=== PATIENT | female | born 1930 | race Two or more races ===

== ENCOUNTER 2016-10-28 11:00 | Emergency (ER) | payer OTHER, MEDICAID ==
[2016-10-28 11:23] VITALS: TEMP 99.1
--- NOTE | 2016-10-28 11:52 | CPEKG ---
Heart Rate: 64 RR Interval: 938 P-R Interval: 172 QRSD Interval: 78 QT Interval: 396 QTC Interval: 409 P [place]: 28 QRS [place]: -28 T Wave [place]: 1 EKG Severity - BORDERLINE ECG - EKG Impression: SINUS RHYTHM EKG Impression: BORDERLINE LEFT AXIS DEVIATION EKG Impression: CONSIDER ANTERIOR INFARCT Electronically Signed By: Oswaldo Monsalve 29-Oct-2016 06:36:01
[2016-10-28 11:57] LABS: % IMMATURE GRANULYOCYTES 0.2 % (0.0-1.1); ABSOLUTE IMMATURE GRANULOCYTES 0.01 10^3/uL (0.00-0.10); ADD DIFF? NO; ADD MORPH? NO; ADD SCAN? NO; ATYPICAL LYMPHOCYTE FLAG 20 (0-99); FRAGMENT RBC FLAG 0 (0-99); HEMATOCRIT 38.6 % (38.0-47.0); HEMOGLOBIN 12.5 g/dL (12.6-16.3); LEFT SHIFT FLG 0 (0-99); LIPEMIA HEMOLYSIS FLAG 80 (0-99); MEAN CELL HEMOGLOBIN CONCENTR. 32.4 g/dL (32.4-36.7); MEAN CELL VOLUME 86.5 fL (81.5-99.8); MEAN PLATELET VOLUME 9.9 fL (8.7-11.7); PLATELET CLUMPS FLAG 10 (0-99); PLATELET COUNT 204 10^3/uL (150-400); RED BLOOD CELL COUNT 4.46 10^6/uL (4.18-5.33); RED CELL DISTRIBUTION WIDTH 17.1 % (11.5-15.2)
[2016-10-28] MEDS ORDERED: IPRATROPIUM/ALBUTEROL 3 ML DEYVIAL IH ONE (12:01)
--- NOTE | 2016-10-28 12:01 | UCPHY ---
H & P Patient Type: Established Chief Complaint Nursing Narrative: Chest congestion and some chest tightness for the last 5 days or so . Decreased appetite for last week. Sent over from [facility] for elevated BP. Pt denies Chest pain or other pain . Denies recent travel. Denies new leg swelling Time Seen by Provider: 10/28/16 11:32 HPI/ROS: This patient presents with a chief complaint of a persisting cough which began 5 or 6 days ago. She has had a subjective fever and nasal congestion believes that she has a cold although she has been using her nebulizer because her asthma is bothering her. She denies shortness of breath however. She denies chest pain but her chest does feel tight. She denies sore throat or ear pain. REVIEW OF SYSTEMS: Constitutional: Subjective fever, fatigue Eyes: No complaints ENT: Nasal congestion but no sore throat and no ear pain Respiratory: Productive cough, denies shortness of breath Cardiac: Chest tightness without pain. Gastrointestinal: Nausea, abdominal cramping, chronic constipation, denies vomiting or diarrhea Genitourinary: Not addressed Musculoskeletal: Chronic lower leg swelling unchanged since the above symptoms began, no calf pain. She has use Lasix in the past for the swelling but not currently. Skin: No rash Neurological: No headache Source: Patient, RN notes reviewed, Old records Exam Limitations: No limitations - Personal History Current Tetanus Diphtheria and Acellular Pertussis (TDAP): Yes Tetanus Vaccine Date: WITHIN 10 YRS - Medical/Surgical History Hx Asthma: Yes Hx Chronic Respiratory Disease: No Hx Diabetes: Yes Hx Cardiac Disease: Yes Hx Renal Disease: No Hx Cirrhosis: No Hx Alcoholism: No Hx HIV/AIDS: No Hx Splenectomy or Spleen Trauma: No Other PMH: Hysterectomy, appendectomy, VT 2014, CHF, SBO, Glaucoma, DM Type II, HTN, A-FIB, ORTHO SURG, SPINAL FUSION, surgery for bowel obstruction,Right shoulder surgery in 2016 - Family History Significant Family History: No pertinent family hx - Social History Smoking Status: Former smoker - Physical Exam Exam: GENERAL: Well-appearing, well-nourished and in no acute distress. HEAD: Atraumatic, normocephalic. EYES: extraocular movements intact, sclera anicteric, conjunctiva are normal. ENT: TMs normal, nares patent, oropharynx clear without exudates. Moist mucous membranes. NECK: Normal range of motion, supple without lymphadenopathy or JVD. No tenderness LUNGS: Breath sounds the expiratory phase of respiration is prolonged and there are expiratory wheezes present, no rales a appreciated. HEART: Regular rate and rhythm without murmurs, rubs or gallops. ABDOMEN: Soft, nontender, normoactive bowel sounds. No guarding, no rebound. No masses appreciated. EXTREMITIES: Normal range of motion, mild lower extremity edema No clubbing or cyanosis. NEUROLOGICAL: Cranial nerves II through XII grossly intact. Normal speech, normal gait. PSYCH: Normal mood, normal affect. SKIN: Warm, dry, normal turgor, no visible rashes or lesions. Constitutional: Initial Vital Signs Temperature (C) 37.3 C 10/28/16 11:18 Heart Rate 64 10/28/16 11:18 Respiratory Rate 22 H 10/28/16 11:18 Blood Pressure 198/94 H 10/28/16 11:18 O2 Sat (%) 94 10/28/16 11:18 O2 Delivery Mode Room Air Allergies/Adverse Reactions: ciprofloxacin [From Cipro] Allergy (Mild, Verified 02/25/16 14:45) Rash ciprofloxacin HCl [From Cipro] Allergy (Mild, Verified 02/25/16 14:45) Rash levofloxacin [From Levaquin] Allergy (Verified 10/28/16 11:23) Home Medications: Medication Instructions Recorded ASPIRIN 02/25/16 Bactrim DS 02/25/16 Cetirizine 02/25/16 Combigan (RX) 02/25/16 Flonase Nasal [place] 02/25/16 LACTULOSE 02/25/16 LYRICA 02/25/16 Lactobacillus Rhamnosus GG 02/25/16 Lasix 02/25/16 Lisinopril 02/25/16 Macrobid 02/25/16 Magnesium Glycinate 02/25/16 Metoprolol Succinate 02/25/16 Milk of Magnesia 02/25/16 Pataday 02/25/16 Pradaxa 02/25/16 Senna-Docusate Sodium Tablet 02/25/16 Tylenol 02/25/16 predniSONE 20 mg PO DAILY #9 tablet 10/28/16 Medical Decision Making - Diagnostics EKG Interpretation: The EKG shows a normal sinus rhythm without any changes suggestive of ischemia. Imaging: A chest x-ray shows no acute abnormalities this is pneumonia, congestive heart failure or pneumothorax. ED Course/Re-evaluation: Ostensibly this patient was sent here because of elevated blood pressure and because of this she was placed on a monitor and her blood pressure will while remained high it was in acceptable range early in her stay. She was monitored throughout her stay in the department. She was given a DuoNeb in afterwards felt that she was breathing more easily. Re-examination reveals wheezes but not as intensely as on the initial exam. - Data Points Laboratory Results: Laboratory Results 10/28/16 11:40 10/28/16 11:40 10/28/16 11:40 WBC 6.07 10^3/uL (3.80-9.50) RBC 4.46 10^6/uL (4.18-5.33) Hgb 12.5 L g/dL (12.6-16.3) Hct 38.6 % (38.0-47.0) MCV 86.5 fL (81.5-99.8) MCH 28.0 pg (27.9-34.1) MCHC 32.4 g/dL (32.4-36.7) RDW 17.1 H % (11.5-15.2) Plt Count 204 10^3/uL (150-400) MPV 9.9 fL (8.7-11.7) Neut % (Auto) 53.8 % (39.3-74.2) Lymph % (Auto) 32.5 % (15.0-45.0) [place] % (Auto) 11.2 % (4.5-13.0) Eos % (Auto) 1.6 % (0.6-7.6) Baso % (Auto) 0.7 % (0.3-1.7) Nucleat RBC Rel Count 0.0 % (0.0-0.2) Absolute Neuts (auto) 3.27 10^3/uL (1.70-6.50) Absolute Lymphs (auto) 1.97 10^3/uL (1.00-3.00) Absolute Monos (auto) 0.68 10^3/uL (0.30-0.80) Absolute Eos (auto) 0.10 10^3/uL (0.03-0.40) Absolute Basos (auto) 0.04 10^3/uL (0.02-0.10) Absolute Nucleated RBC 0.00 10^3/uL (0-0.01) Immature Gran % 0.2 % (0.0-1.1) Immature Gran # 0.01 10^3/uL (0.00-0.10) Sodium 142 mEq/L (134-144) Potassium 3.8 mEq/L (3.5-5.2) Chloride 104 mEq/L (97-110) Carbon Dioxide 26 mEq/l (22-31) Anion Gap 12 mEq/L (8-16) BUN 5 L mg/dL (7-23) Creatinine 0.6 mg/dL (0.6-1.0) Estimated GFR > 60 Glucose 138 H mg/dL (70-100) Calcium 9.2 mg/dL (8.5-10.4) Troponin I < 0.012 ng/mL (0-0.034) Medications Given: Discontinued Medications Albuterol/Ipratropium (Duoneb) 3 ml IH EDNOW ONE Stop: 10/28/16 12:02 Last Admin: 10/28/16 12:30 Dose: 3 ml Departure - Departure Disposition: Home, Routine, Self-Care Clinical Impression: Asthma exacerbation Acute bronchitis Qualifiers: Bronchitis organism: unspecified organism Qualifier Code: (J20.9) Acute bronchitis, unspecified Condition: Good Instructions: Acute Bronchitis (ED), Bronchospasm (ED) Additional Instructions: If your symptoms have not resolved in the next 5 or 6 days you should be re- evaluated. If you feel that your symptoms are worsening you should be seen sooner. Use your nebulizer at least 4 times daily although you can use it every 2 hours if necessary to control any shortness of breath or any coughing fits. Referrals: Nati Ortiz [Primary Care Provider] - As per Instructions Prescriptions: predniSONE 20 mg PO DAILY #9 tablet - PQRS PQRS Measurement: Not applicable
[2016-10-28 12:12] LABS: ANION GAP 12 mEq/L (8-16); CALCIUM 9.2 mg/dL (8.5-10.4); CARBON DIOXIDE 26 mEq/l (22-31); CHLORIDE 104 mEq/L (97-110); CREATININE 0.6 mg/dL (0.6-1.0); GLOMERULAR FILTRATION RATE > 60; GLUCOSE 138 mg/dL (70-100); POTASSIUM 3.8 mEq/L (3.5-5.2); SODIUM 142 mEq/L (134-144)
[2016-10-28 12:22] LABS: TROPONIN I < 0.012 ng/mL (0-0.034)
--- NOTE | 2016-10-28 12:38 | DX ---
PA and lateral chest. October 28, 2016. Clinical History: Cough. Dyspnea. Comparison Study: September 28, 2011. Findings: Parenchymal scarring is identified in the lingula, unchanged. No focal infiltrate or pleura l effusion. Heart size is upper normal.. Prior reverse right total shoulder arthroplasty. Prior cervical spine surgery.. Impression: No acute cardiopulmonary abnormality..
[2016-10-28] MEDS ORDERED: predniSONE 20 MG TAB PO ONE (12:52)
[2016-10-28 13:20] VITALS: BP 178/84; PULSE 62; RESP 20; O2SAT 93
== END 2016-10-28 13:21 | disposition home or self-care (01) ==
LOC: CED 11:00
DX: J45.901 Unspecified asthma with (acute) exacerbation (principal); J20.9 Acute bronchitis, unspecified; I25.2 Old myocardial infarction; E11.9 Type 2 diabetes mellitus without complications; I10 Essential (primary) hypertension; I48.91 Unspecified atrial fibrillation; I50.9 Heart failure, unspecified; Z98.1 Arthrodesis status; Z87.891 Personal history of nicotine dependence
CPT/HCPCS: 71020; 93005; G0463; 80048-PO; 84484-PO; 85025-PO; 93010-PO; 99215-PO

== ENCOUNTER 2016-11-01 16:04 | Emergency (ER) | payer OTHER, MEDICAID ==
[2016-11-01 16:33] VITALS: RESP 18; TEMP 98
--- NOTE | 2016-11-01 16:50 | UCPHY ---
H & P Time Seen by Provider: 11/01/16 16:11 Patient Type: Established HPI/ROS: CHIEF COMPLAINT: High blood pressure HPI: The patient is a 86-year-old female with a history of HI. She was seen approximately 4-5 days ago in the Urgent Care for high blood pressure and bronchitis. She states her symptoms have improved. She called her doctor because of high blood pressure and her doctor told her to go to the ER. The patient states she does not want to go to the ER because she wants to stay in the hospital, and she has returned to urgent care. The patient describes mild pain in her chest which has been present for the last week, which she attributes to coughing. She denies fever or shortness of breath. She denies headache, change in vision, numbness, weakness or tingling. The patient states she takes only metoprolol twice a day for her blood pressure, but she does not recall the dose. She denies any missed doses. She states she has used her inhaler twice today. REVIEW OF SYSTEMS: Aside from elements discussed in the HPI, a comprehensive 10-point review of systems was reviewed and is negative. PMH: Includes HI, high blood pressure comma seasonal allergies. SOCIAL HISTORY: Primary physician is Dr. Carbajal. Denies alcohol or drug abuse. FAMILY HISTORY: Reviewed, noncontributory PHYSICAL EXAM: General:Patient is alert, in no acute distress. ENT:Eyes are normal to inspection. ENT inspection normal. Neck: Normal inspection. Full range of motion. Respiratory:No respiratory distress. Breath sounds normal bilaterally. Cardiovascular: Regular rate and rhythm. Strong peripheral pulses. Normal cap refill. Abdomen:The abdomen is nontender to palpation. There are no peritoneal signs. There are normal bowel sounds. Back: Normal to inspection. No tenderness to palpation. Skin: Normal color. No rash. Warm and dry. Extremities: Normal appearance. Full range of motion. Neuro: Oriented x3. Normal motor function. Normal sensory function. Smoking Status: Never smoked Constitutional: Initial Vital Signs Temperature (C) 36.6 C 11/01/16 16:30 Heart Rate 70 11/01/16 16:30 Respiratory Rate 18 11/01/16 16:30 Blood Pressure 212/101 H 11/01/16 16:30 O2 Sat (%) 94 11/01/16 16:30 O2 Delivery Mode Room Air Allergies/Adverse Reactions: ciprofloxacin [From Cipro] Allergy (Mild, Verified 02/25/16 14:45) Rash ciprofloxacin HCl [From Cipro] Allergy (Mild, Verified 02/25/16 14:45) Rash levofloxacin [From Levaquin] Allergy (Verified 10/28/16 11:23) Home Medications: Medication Instructions Recorded ASPIRIN 02/25/16 Bactrim DS 02/25/16 Cetirizine 02/25/16 Combigan (RX) 02/25/16 Flonase Nasal [place] 02/25/16 LACTULOSE 02/25/16 LYRICA 02/25/16 Lactobacillus Rhamnosus GG 02/25/16 Lasix 02/25/16 Lisinopril 02/25/16 Macrobid 02/25/16 Magnesium Glycinate 02/25/16 Metoprolol Succinate 02/25/16 Milk of Magnesia 02/25/16 [place] 02/25/16 Pradaxa 02/25/16 Senna-Docusate Sodium Tablet 02/25/16 Tylenol 02/25/16 predniSONE 20 mg PO DAILY #9 tablet 10/28/16 Medical Decision Making ED Course/Re-evaluation: This patient presents with mild chest pain in the setting of previous HI, with severely elevated BP. Thankfully her ECG shows no significant ischemic changes. She had a full lab panel done a few days ago which was negative for signs of end-organ damage. I had an extensive discussion with her regarding the fact that she would be better served in an ER and would likely benefit from inpatient admission. She adamantly denies transfer to another facility or further workup, and is able to verbalize risks of refusal, including heart attack, stroke and . This is her second visit to the Urgent Care for these symptoms in the last week, and she apparently has not had any of her medications adjusted, so I am concerned about plan at discharge. I spoke to the on-call physician for Dr. Ortiz, Dr. Beulah Carballo. He agrees this is concerning and will see the patient tomorrow morning in clinic. The patient was given 25mg of metoprolol here with good response. Her BP is down to approximately 180/70 and she is asymptomatic at 6:10pm. - Data Points Laboratory Results: 11/01/16 16:30 Urine Color YELLOW Urine Appearance CLEAR Urine pH 7.0 (5.0-7.5) Ur Specific [place] <= 1.005 (1.002-1.030) Urine Protein NEGATIVE (NEGATIVE) Urine Ketones NEGATIVE (NEGATIVE) Urine Blood NEGATIVE (NEGATIVE) Urine Nitrate NEGATIVE (NEGATIVE) Urine Bilirubin NEGATIVE (NEGATIVE) Urine Urobilinogen 0.2 EU (0.2-1.0) Ur Leukocyte Esterase NEGATIVE (NEGATIVE) Urine RBC NONE SEEN /hpf (0-3) Urine WBC 1-3 /hpf (0-3) Ur Epithelial Cells NONE SEEN /lpf (NONE-1+) Urine Bacteria 1+ H /hpf (NONE SEEN) Urine Yeast OCCASIONAL H /hpf (NONE SEEN) Ur Culture Indicated? INDICATED H (NI) Urine Glucose TRACE H (NEGATIVE) Medications Given: Discontinued Medications Metoprolol Tartrate (Lopressor) 25 mg PO EDNOW ONE Stop: 11/01/16 17:18 Last Admin: 11/01/16 17:23 Dose: 25 mg Departure - Departure Disposition: Home, Routine, Self-Care Clinical Impression: Hypertensive urgency Condition: Good Instructions: Chronic Hypertension (ED) Additional Instructions: Go to your doctor's office anytime tomorrow between 8am-12pm. You do not need to call in or get an appointment. Dr. Beulah Carballo will be expecting you. Go to the ER immediately for chest pain, headache, numbness or other concerns. Take your normal half-pill of metoprolol tonight and again in the morning. Referrals: Nati Ortiz [Primary Care Provider] - As per Instructions - PQRS PQRS Measurement: 134: Depression screening and followup, PRIME MD-PHQ2 (12 years and older) Over the last 2 weeks, how often have you been bothered by any of the following problems? 1. Feeling down, depressed, or hopeless? 2. Little interest or pleasure in doing things? Patient answered no to both 1 and 2 130: Documentation of medications. Reviewed all patient medications, doses, route and frequency. 226: Do you smoke? No. 51: 18 years old and older with diagnosis of COPD, spirometry performance. Spirometry not performed; equipment not available. Patient has no history of COPD 52: 18 years old and older with COPD and symptoms of COPD or FEV1<60% predicted prescribed a B Agonist. Spirometry not performed; equipment not available.
--- NOTE | 2016-11-01 16:55 | CPEKG ---
Heart Rate: 67 RR Interval: 896 P-R Interval: 164 QRSD Interval: 80 QT Interval: 392 QTC Interval: 414 P [place]: 19 QRS [place]: 84 T Wave [place]: 51 EKG Severity - ABNORMAL ECG - EKG Impression: SINUS RHYTHM EKG Impression: PROBABLE LEFT ATRIAL ABNORMALITY EKG Impression: BORDERLINE RIGHT AXIS DEVIATION EKG Impression: CONSIDER ANTERIOR INFARCT EKG Impression: BORDERLINE T ABNORMALITIES, ANTERIOR LEADS Electronically Signed By: Brad Norman 02-Nov-2016 19:38:03
[2016-11-01] MEDS ORDERED: METOPROLOL TARTRATE 25 MG TAB PO ONE (17:17)
[2016-11-01 17:25] VITALS: O2SAT 95
[2016-11-01 17:35] LABS: COLOR YELLOW; LEUKOCYTE ESTERASE,URINE NEGATIVE (NEGATIVE); NITRITE,URINE NEGATIVE (NEGATIVE)
[2016-11-01 18:25] LABS: RBC,URINE NONE SEEN /hpf (0-3)
[2016-11-01 18:26] LABS: BACTERIA 1+ /hpf (NONE SEEN); YEAST OCCASIONAL /hpf (NONE SEEN)
[2016-11-01 18:35] VITALS: BP 178/88; PULSE 85
== END 2016-11-01 18:32 | disposition home or self-care (01) ==
LOC: CED 16:04
DX: I16.0 Hypertensive urgency (principal)
CPT/HCPCS: 93005; G0463; 81003-PO; 81015-PO; 93010-PO; 99214-PO

== ENCOUNTER 2017-02-26 21:05 | Emergency (ER) | payer OTHER, MEDICAID ==
[2017-02-26 21:11] VITALS: TEMP 98.1
[2017-02-26] MEDS ORDERED: ASPIRIN 81 MG CHEWABLE TAB PO ONE (21:14)
[2017-02-26] MEDS ORDERED: NITROGLYCERIN 0.4 MG BTL SL PRN (21:14)
--- NOTE | 2017-02-26 21:32 | CPEKG ---
Heart Rate: 57 RR Interval: 1053 P-R Interval: 180 QRSD Interval: 76 QT Interval: 404 QTC Interval: 394 P [place]: 38 QRS [place]: -24 T Wave [place]: 10 EKG Severity - BORDERLINE ECG - EKG Impression: SINUS RHYTHM EKG Impression: BORDERLINE LEFT AXIS DEVIATION EKG Impression: CONSIDER ANTERIOR INFARCT Electronically Signed By: Colleen Reed 26-Feb-2017 23:04:09
[2017-02-26 21:36] LABS: COLOR YELLOW; LEUKOCYTE ESTERASE,URINE NEGATIVE (NEGATIVE); NITRITE,URINE NEGATIVE (NEGATIVE)
--- NOTE | 2017-02-26 21:43 | EDPHY ---
H & P Time Seen by Provider: 02/26/17 21:13 HPI/ROS: HPI High blood pressure comma chest discomfort. 86-year-old female by private vehicle with her son. Patient reports that her blood pressure has been high today. She reports that she developed which she describes as a dull ache in the left side of her chest with radiation up into her left neck and about 7 to 8:00 p.m. tonight. This has persisted but she states that is better now denies any neck pain. She describes still having a small amount of left mid chest discomfort again described as a dull ache. She has been seen in the past this facility for similar complaints regarding concerns over her blood pressure but without has significant a chest discomfort component. Constitutional: No fever, no chills. No weakness. Eyes: No discharge. No changes in vision. ENT: No sore throat. No nasal congestion or rhinorrhea. Respiratory: No cough. No shortness of breath. Cardiac: As above, no palpitations. Gastrointestinal: No abdominal pain, no vomiting, no diarrhea. Genitourinary: No hematuria. No dysuria. Intermittent frequency with urination. Musculoskeletal: No back pain. No neck pain. No myalgias or arthralgias. Skin: No rashes. Neurological: Mild gradual onset headache. No focal weakness or altered sensation. Past medical history: Coronary artery disease with myocardial infarction in 2015. She has had multiple stents placed. Other past medical history includes hypertension, glaucoma, type 2 diabetes, spinal fusion, atrial fibrillation, orthopedic surgeries. Medications include lisinopril, metoprolol and aspirin. She took lisinopril and metoprolol at 7:28 p.m. tonight. Primary care physician is Dr. Carbajal. She was brought to the emergency department by close friend and neighbor. Social history: Lives by herself. No alcohol. No smoking. Physical Exam: General Appearance: Alert, no distress. This patient is responding to questions appropriately and in full sentences. This patient appears well- hydrated and well-nourished. Eyes: Pupils equal and round no pallor or injection. No lid edema, erythema or injection. Respiratory: There are no retractions, lungs are clear to auscultation anteriorly with good air movement bilaterally. Cardiovascular: Regular rate and rhythm. No murmur. Gastrointestinal: Abdomen is soft and nontender, no masses, bowel sounds normal. No focal tenderness at McBurney's point. No Wang sign. Neurological: Motor sensory function is grossly intact. Cranial nerves are normal. Gait is normal. Skin: Warm and dry, no rashes. Musculoskeletal: Neck is supple and nontender. Extremities are symmetrical. All joints range without pain or impingement. Psychiatric: No agitation. No depression. Database: EKG: EKG time is 9:30 p.m.; EKG shows a narrow complex normal sinus rhythm with a ventricular rate of 57. Borderline left axis deviation noted. The OR, QRS, QT intervals are within normal limits. There are no ST-T wave changes indicative of ischemic or injury pattern. No evidence of right heart strain. Interpreted by me. No significant change from prior EKG from October of this year. Imaging: Chest x-ray AP portable; the cardiac mediastinal silhouette is unremarkable. Hypoventilatory chest with mild bronchitis. Indistinct left basilar opacities likely atelectasis. Results discussed with staff radiologist. Procedures: Emergency department course: IV placed. Vital signs reviewed. She was placed on oxygen at 2 L by nasal cannula. She was placed on a monitoring manager. She was given 324 mg of chewed aspirin. On re-evaluation at 9:45 p.m., chest discomfort has resolved. Nitroglycerin will be held for the time being. EKG and chest x-ray performed. 10:20 p.m., patient re-evaluated. Resting comfortably at this time. No chest pain. No complaints. Blood pressure 181/69. Results of diagnostic tests discussed. Plan for observation admission discussed. Her care is through [facility]. She is requesting to be transferred there. This will be arranged. 10:35 p.m., discussed patient's emergency department course and presentation with hospitalist Dr. Nati payne of [facility]. Case discussed in detail with her. She accepts this patient for transfer to telemetry at [facility]. I have filled out the appropriate transfer paperwork. The patient was informed of her admission to [facility] and care under Dr. Maki. All of her questions were answered. The patient's remaining emergency department course under my care has been uneventful she was transferred in stable and improved condition. Differential Diagnosis: The differential diagnosis on this patient includes but is not limited to acute coronary syndrome, myocardial infarction, anxiety reaction, hypertensive emergency, anxiety reaction. This represents a partial list of diagnoses considered. These considerations are based on history, physical exam, past history, reassessment and diagnostic testing. Smoking Status: Never smoked Constitutional: Initial Vital Signs Temperature (C) 36.7 C 02/26/17 21:07 Heart Rate 62 02/26/17 21:07 Respiratory Rate 16 02/26/17 21:07 Blood Pressure 207/96 H 02/26/17 21:07 O2 Sat (%) 94 02/26/17 21:07 O2 Delivery Mode Room Air Allergies/Adverse Reactions: ciprofloxacin [From Cipro] Allergy (Mild, Verified 02/26/17 21:11) Rash ciprofloxacin HCl [From Cipro] Allergy (Mild, Verified 02/26/17 21:11) Rash levofloxacin [From Levaquin] Allergy (Verified 02/26/17 21:11) Home Medications: Medication Instructions Recorded ASPIRIN 02/25/16 Bactrim DS 02/25/16 Cetirizine 02/25/16 Combigan (RX) 02/25/16 Flonase Nasal [place] 02/25/16 LACTULOSE 02/25/16 Lactobacillus Rhamnosus GG 02/25/16 Lasix 02/25/16 Lisinopril 02/25/16 Macrobid 02/25/16 Magnesium Glycinate 02/25/16 Metoprolol Succinate 02/25/16 Milk of Magnesia 02/25/16 [place] 02/25/16 Pradaxa 02/25/16 Senna-Docusate Sodium Tablet 02/25/16 Tylenol 02/25/16 predniSONE 20 mg PO DAILY #9 tablet 10/28/16 GABAPENTIN 02/26/17 Medical Decision Making - Diagnostics Imaging Results: Imaging Impressions Chest X-Ray 02/26/17 21:15 Impression: Hypoventilatory chest with mild bronchitis and indistinct left basilar opacities that could be related to atelectasis. - Data Points Laboratory Results: Laboratory Results 02/26/17 21:38 02/26/17 21:38 02/26/17 02/26/17 02/26/17 21:38 21:38 21:38 WBC 7.36 10^3/uL 10^3/uL (3.80-9.50) RBC 4.52 10^6/uL 10^6/uL (4.18-5.33) Hgb 14.1 g/dL g/dL (12.6-16.3) Hct 41.5 % % (38.0-47.0) MCV 91.8 fL fL (81.5-99.8) MCH 31.2 pg pg (27.9-34.1) MCHC 34.0 g/dL g/dL (32.4-36.7) RDW 14.0 % % (11.5-15.2) Plt Count 210 10^3/uL 10^3/uL (150-400) MPV 9.8 fL fL (8.7-11.7) Neut % (Auto) 54.1 % % (39.3-74.2) Lymph % (Auto) 32.1 % % (15.0-45.0) Hunt % (Auto) 11.0 % % (4.5-13.0) Eos % (Auto) 2.3 % % (0.6-7.6) Baso % (Auto) 0.4 % % (0.3-1.7) Nucleat RBC Rel Count 0.0 % % (0.0-0.2) Absolute Neuts (auto) 3.98 10^3/uL 10^3/uL (1.70-6.50) Absolute Lymphs (auto) 2.36 10^3/uL 10^3/uL (1.00-3.00) Absolute Monos (auto) 0.81 10^3/uL H 10^3/uL (0.30-0.80) Absolute Eos (auto) 0.17 10^3/uL 10^3/uL (0.03-0.40) Absolute Basos (auto) 0.03 10^3/uL 10^3/uL (0.02-0.10) Absolute Nucleated RBC 0.00 10^3/uL 10^3/uL (0-0.01) Immature Gran % 0.1 % % (0.0-1.1) Immature Gran # 0.01 10^3/uL 10^3/uL (0.00-0.10) PT 13.4 SEC SEC (12.0-15.0) INR 1.05 (0.83-1.16) APTT 27.7 SEC SEC (23.0-38.0) Sodium 143 mEq/L mEq/L (134-144) Potassium 4.0 mEq/L mEq/L (3.5-5.2) Chloride 104 mEq/L mEq/L (97-110) Carbon Dioxide 22 mEq/l mEq/l (22-31) Anion Gap 17 mEq/L H mEq/L (8-16) BUN 11 mg/dL mg/dL (7-23) Creatinine 0.6 mg/dL mg/dL (0.6-1.0) Estimated GFR > 60 Glucose 111 mg/dL H mg/dL (70-100) Calcium 9.5 mg/dL mg/dL (8.5-10.4) Creatine Kinase 49 IU/L IU/L (0-156) CK-MB (CK-2) Fraction 0.31 ng/mL ng/mL (0-4.55) Troponin I < 0.012 ng/mL ng/mL (0-0.034) Urine Color Urine Appearance Urine pH Ur Specific [place] Urine Protein Urine Ketones Urine Blood Urine Nitrate Urine Bilirubin Urine Urobilinogen Ur Leukocyte Esterase Urine Glucose 02/26/17 21:25 WBC RBC Hgb Hct MCV MCH MCHC RDW Plt Count MPV Neut % (Auto) Lymph % (Auto) Hunt % (Auto) Eos % (Auto) Baso % (Auto) Nucleat RBC Rel Count Absolute Neuts (auto) Absolute Lymphs (auto) Absolute Monos (auto) Absolute Eos (auto) Absolute Basos (auto) Absolute Nucleated RBC Immature Gran % Immature Gran # PT INR APTT Sodium Potassium Chloride Carbon Dioxide Anion Gap BUN Creatinine Estimated GFR Glucose Calcium Creatine Kinase CK-MB (CK-2) Fraction Troponin I Urine Color YELLOW Urine Appearance CLEAR Urine pH 7.0 (5.0-7.5) Ur Specific [place] <= 1.005 (1.002-1.030) Urine Protein NEGATIVE (NEGATIVE) Urine Ketones NEGATIVE (NEGATIVE) Urine Blood NEGATIVE (NEGATIVE) Urine Nitrate NEGATIVE (NEGATIVE) Urine Bilirubin NEGATIVE (NEGATIVE) Urine Urobilinogen 0.2 EU EU (0.2-1.0) Ur Leukocyte Esterase NEGATIVE (NEGATIVE) Urine Glucose NEGATIVE (NEGATIVE) Medications Given: Discontinued Medications Aspirin (Aspirin) 324 mg PO EDNOW ONE Stop: 02/26/17 21:15 Last Admin: 02/26/17 21:20 Dose: 324 mg Departure - Departure Disposition: Acute Care Hospital Not [facility] Clinical Impression: Chest discomfort, Uncontrolled hypertension Referrals: Nati Ortiz [Primary Care Provider] - As per Instructions
[2017-02-26 21:45] LABS: % IMMATURE GRANULYOCYTES 0.1 % (0.0-1.1); ABSOLUTE IMMATURE GRANULOCYTES 0.01 10^3/uL (0.00-0.10); ADD DIFF? NO; ADD MORPH? NO; ADD SCAN? NO; ATYPICAL LYMPHOCYTE FLAG 10 (0-99); FRAGMENT RBC FLAG 0 (0-99); HEMATOCRIT 41.5 % (38.0-47.0); HEMOGLOBIN 14.1 g/dL (12.6-16.3); LEFT SHIFT FLG 0 (0-99); LIPEMIA HEMOLYSIS FLAG 90 (0-99); MEAN CELL HEMOGLOBIN 31.2 pg (27.9-34.1); MEAN CELL VOLUME 91.8 fL (81.5-99.8); MEAN PLATELET VOLUME 9.8 fL (8.7-11.7); PLATELET CLUMPS FLAG 0 (0-99); PLATELET COUNT 210 10^3/uL (150-400); RED BLOOD CELL COUNT 4.52 10^6/uL (4.18-5.33)
[2017-02-26 21:56] LABS: INR 1.05 (0.83-1.16); PROTIME(PATIENT) 13.4 SEC (12.0-15.0)
[2017-02-26 21:57] LABS: APTT 27.7 SEC (23.0-38.0)
[2017-02-26 21:58] LABS: ANION GAP 17 mEq/L (8-16); CALCIUM 9.5 mg/dL (8.5-10.4); CARBON DIOXIDE 22 mEq/l (22-31); CHLORIDE 104 mEq/L (97-110); CREATININE 0.6 mg/dL (0.6-1.0); GLOMERULAR FILTRATION RATE > 60; GLUCOSE 111 mg/dL (70-100); SODIUM 143 mEq/L (134-144)
[2017-02-26 22:11] LABS: CREATINE KINASE-MB FRACTION 0.31 ng/mL (0-4.55); TROPONIN I < 0.012 ng/mL (0-0.034)
[2017-02-26 22:50] VITALS: RESP 18
[2017-02-26 23:38] VITALS: BP 165/59; PULSE 57; O2SAT 95
== END 2017-02-26 23:30 | disposition short-term general hospital (02) ==
LOC: CED 21:05
DX: R07.89 Other chest pain (principal); I10 Essential (primary) hypertension; I25.10 Atherosclerotic heart disease of native coronary artery without angina pectoris; I25.2 Old myocardial infarction; E11.9 Type 2 diabetes mellitus without complications; Z79.82 Long term (current) use of aspirin; Z95.5 Presence of coronary angioplasty implant and graft
CPT/HCPCS: 71010-PO; 80048-PO; 81003-PO; 82550-PO; 82553-PO; 84484-PO; 85025-PO; 85610-PO; 85730-PO

== ENCOUNTER 2018-05-30 18:26 | Emergency (ER) | payer OTHER, MEDICAID ==
--- NOTE | 2018-05-30 18:48 | EDPHY ---
H & P Time Seen by Provider: 05/30/18 18:47 HPI/ROS: Chief complaint. Congestion, shortness of breath HPI. 87-year-old female with 1 week history of cough and congestion. She is coughing up white mucus. She has shortness of breath with cough but not with exertion such as walking around her apartment. She also has some burning in her left chest without radiation. The burning is present when she sitting but not worse with walking or breathing. She has chronic ankle swelling but it is not worse. She has some nausea but she says she has had nausea for a long time and again is not worse. She tells me"it does not feel like my heart". Temperature this morning was 99.6 but otherwise no fever. She is being treated for a UTI with Bactrim but feels that her urine is still cloudy. She saw her tie man for routine check 2 days ago with EKG being performed and evaluation did not result in any change of medication or hospitalization or recommendation for further testing. ROS Constitutional. no fever/chills, fatigue Eyes. no problems with vision ENT. Congestion Cardiovascular. Burning left chest Respiratory. Shortness of breath with cough but not with exertion. Cough productive of white mucus Abdominal. no abdominal pain, no nausea/vomiting, no diarrhea . Cloudy urine MS. no calf pain/swelling, no neck/back pain, no joint pain Skin. no rash Lymph. no swollen glands Neuro. no headache, no dizziness, no difficulty walking or with speech Past Medical/Surgical History: Past medical history is significant for coronary artery disease with stents and previous ME. Congestive heart failure, small-bowel obstruction type 2 diabetes , hypertension, atrial fibrillation, back surgery, hysterectomy, appendectomy Social History: , nonsmoker, no alcohol Smoking Status: Never smoked Physical Exam: General Appearance: Alert well-developed female mild distress vital signs are stable Eyes: Pupils equal and round no pallor or injection. ENT, Mouth: Mucous membranes are moist. Respiratory: There are no retractions. Mild inspiratory expiratory rhonchi. Cardiovascular: Regular rate and rhythm. Gastrointestinal: Abdomen is soft and nontender, no masses, bowel sounds normal. Neurological: Awake and alert, sensory and motor exams grossly normal. Skin: Warm and dry, no rashes. Musculoskeletal: Neck is supple nontender. Extremities symmetrical, full range of motion. Psychiatric: Patient is oriented X 3, there is no agitation. Constitutional: Initial Vital Signs Temperature (C) 36.9 C 05/30/18 18:38 Heart Rate 60 05/30/18 18:38 Respiratory Rate 22 H 05/30/18 18:38 Blood Pressure 139/73 H 05/30/18 18:38 O2 Sat (%) 94 05/30/18 18:38 O2 Delivery Mode Room Air O2 (L/minute) 2 Allergies/Adverse Reactions: ciprofloxacin [From Cipro] Allergy (Mild, Verified 02/26/17 21:11) Rash ciprofloxacin HCl [From Cipro] Allergy (Mild, Verified 02/26/17 21:11) Rash levofloxacin [From Levaquin] Allergy (Verified 02/26/17 21:11) Home Medications: Medication Instructions Recorded ASPIRIN 02/25/16 Alphagan 0.2% 05/30/18 Atorvastatin Calcium 05/30/18 Azithromycin [Zithromax] 250 mg PO DAILY #6 tab 05/30/18 Cosopt (*) 05/30/18 Docusate Sodium 05/30/18 Doxycycline Hyclate 05/30/18 Fluticasone Nasal 05/30/18 Gabapentin 05/30/18 Metoprolol Tartrate 05/30/18 Nitroglycerin 05/30/18 Omeprazole 05/30/18 Ondansetron 05/30/18 Potassium Chloride 05/30/18 Potassium Chloride 05/30/18 SUMAtriptan 05/30/18 Triamterene-Hctz 37.5-25 mg Tb 05/30/18 Vitamin D3 (*) 05/30/18 predniSONE 40 mg PO DAILY #6 tablet 05/30/18 Medical Decision Making - Diagnostics EKG Interpretation: EKG interpreted by shows normal sinus rhythm normal interval. 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 QRS is otherwise normal there is no significant ST elevation or depression. There is no arrhythmia. The rate is 56 No significant change from previous EKG February 2017 Imaging Results: Imaging Impressions Chest X-Ray 05/30/18 18:48 Impression: 1. No definite acute findings in the chest. 2. Age-indeterminate mild compression fracture at what appears to be T3. Findings discussed with NATASHA CHONG 05/30/2018 at 20:21. Chest x-ray interpreted by me shows LVH in tortuous aorta but no evidence of pneumonia and no significant findings for congestive heart failure. There does appear to be a new mild compression fracture at T3 compared to previous chest x- ray in February 2017 No significant change from previous chest x-ray February 2017 Procedures: IV normal saline, monitor DuoNeb formerly [facility] ED Course/Re-evaluation: Point of care troponin is 0.00 Re-evaluation at 8:00 p.m.. Patient is stable. She has no urge to urinate and tells me that she thinks she is somewhat dehydrated as she has not been drinking. She will be given 500 mL of normal saline. Recheck again at 8:30 p.m. after the DuoNeb treatment. Lungs are clear no wheezing or rhonchi. Patient feels much better. Room air saturation 97% Patient is taking oral fluids. Patient tells me that when she saw her physician the other day she asked for a Z-Bridger and prednisone as when she has had this before she finds that this treatment helps her quite a bit. Patient is given 40 mg of prednisone orally Urine dip is normal. No leukocytes or nitrites. Re-evaluation again at 9:10 p.m.. Patient and I discussed laboratory evaluation , imaging studies, EKG findings. We discussed treatment plan including criteria for return and importance of follow-up and further evaluation. She expresses understanding and agreement The patient is offered admission however she would prefer to be treated as an outpatient. The patient and I discussed risks and benefits of this Differential Diagnosis: I considered acute coronary syndrome however the patient has had 4 days of burning chest discomfort with the troponin of 0. She has an EKG that is unchanged since 2017. I considered pneumonia and the patient has a normal chest x-ray. Her complaints of really been cough and congestion. She is better with the DuoNeb. I do not think this is acute coronary syndrome. I do not think she has pneumonia. This would appear to be bronchitis or viral syndrome. However due to the patient's age she will be treated with prednisone and Zithromax. - Data Points Laboratory Results: 05/30/18 05/30/18 05/30/18 19:42 19:41 19:30 POC Sodium 134 mEq/L L mEq/L (135-145) POC Potassium 3.8 mEq/L mEq/L (3.3-5.0) POC Chloride 103.0 mEq/L mEq/L (97-110) POC Total CO2 22 mEq/L mEq/L (22-31) POC BUN 23 mg/dL mg/dL (7-23) POC Creatinine 1.2 mg/dL H mg/dL (0.6-1.0) POC Glucose 103 mg/dL H mg/dL (70-100) POC Calcium 8.8 mg/dL mg/dL (8.5-10.4) POC Troponin I 0.00 ng/mL ng/mL (0.00-0.08) NT-Pro-B Natriuret Pep 427 pg/mL pg/mL (0-450) Medications Given: Discontinued Medications Albuterol/Ipratropium (Duoneb) 3 ml IH EDNOW ONE Stop: 05/30/18 19:27 Last Admin: 05/30/18 19:29 Dose: 3 ml Azithromycin (Zithromax) 500 mg PO EDNOW ONE PRN Reason: Protocol Stop: 05/30/18 20:50 Last Admin: 05/30/18 21:01 Dose: 500 mg Sodium Chloride (Ns) 500 mls @ 1,000 mls/hr IV EDNOW ONE PRN Reason: Protocol Stop: 05/30/18 20:30 Last Admin: 05/30/18 20:32 Dose: 500 mls Prednisone (Prednisone) 40 mg PO EDNOW ONE Stop: 05/30/18 20:37 Last Admin: 05/30/18 20:44 Dose: 40 mg Point of Care Test Results: CBC CBC Collection Date 05/30/18 CBC Collection Time 19:30 WBC 9.2 RBC 4.43 HGB 13.8 HCT 41.0 PLT 208 Neut # 5.7 Neut 62.1 LYMPH # 2.1 LYMPH 22.4 Other WBC # 1.4 Other WBC 15.5 MCV 92.6 Chemistry 05/30/18 05/30/18 19:42 19:41 POC Sodium 134 mEq/L L mEq/L (135-145) POC Potassium 3.8 mEq/L mEq/L (3.3-5.0) POC Chloride 103.0 mEq/L mEq/L (97-110) POC Total CO2 22 mEq/L mEq/L (22-31) POC BUN 23 mg/dL mg/dL (7-23) POC Creatinine 1.2 mg/dL H mg/dL (0.6-1.0) POC Glucose 103 mg/dL H mg/dL (70-100) POC Calcium 8.8 mg/dL mg/dL (8.5-10.4) POC Troponin I 0.00 ng/mL ng/mL (0.00-0.08) Urine Dip Collection Date 05/30/18 Collection Time 20:35 Specific [place] (1.002-1.030) 1.030 PH (5.0-7.5) 6.0 Leukocytes (Negative) Negative Nitrites (Negative) Negative Protein (Negative) Negative Glucose (Negative) Negative Ketones (Negative) Negative Urobilnogen (0.2-1.0 EU) 0.2 Bilirubin (Negative) Negative Blood (Negative) Negative Departure - Departure Disposition: Home, Routine, Self-Care Clinical Impression: Acute bronchitis Qualifiers: Bronchitis organism: unspecified organism Qualified Code(s): J20.9 - Acute bronchitis, unspecified Condition: Good Instructions: Acute Bronchitis (ED) Additional Instructions: Drink enough fluids to stay hydrated. Discontinue doxycycline. Tomorrow begin Zithromax 250 mg 1 pill daily for 4 days Prednisone daily for 3 days. Return for worsening breathing, fever, chest pain. Recheck in 2 days if not improving Referrals: NONE *PRIMARY CARE P,. [Primary Care Provider] - As per Instructions Nati Ortiz [Non Staff and Non MD] - 2-3 days, if not improved Prescriptions: Azithromycin [Zithromax] 250 mg PO DAILY #6 tab predniSONE 40 mg PO DAILY #6 tablet
[2018-05-30] MEDS ORDERED: IPRATROPIUM/ALBUTEROL 3 ML DEYVIAL IH ONE (19:26)
[2018-05-30] MEDS ORDERED: NS 500 ML IV ONE (20:01)
[2018-05-30] MEDS ORDERED: predniSONE 20 MG TAB PO ONE (20:36)
[2018-05-30] MEDS ORDERED: AZITHROMYCIN 250 MG TAB PO ONE (20:49)
[2018-05-30 21:57] VITALS: BP 131/69
--- NOTE | 2018-06-01 07:09 | CPEKG ---
Test Reason : OPEN Blood Pressure : / mmHG Vent. Rate : 056 BPM Atrial Rate : 056 BPM P-R Int : 169 ms QRS Dur : 081 ms QT Int : 419 ms P-R-T Axes : 020 -16 019 degrees QTc Int : 405 ms Sinus rhythm Inferior infarct, old Confirmed by Ap Lomas ([id number]) on 06/01/2018 7:08:43 AM Referred By: Confirmed By:Ap Lomas
== END 2018-05-30 21:35 | disposition home or self-care (01) ==
LOC: CED 18:26
DX: J20.9 Acute bronchitis, unspecified (principal); E86.9 Volume depletion, unspecified
CPT/HCPCS: 71046; 93005; 96360; 99285; J7512; 80048-PO; 84484-PO

== ENCOUNTER 2019-04-06 14:43 | Emergency (ER) | payer OTHER, MEDICAID | END 2019-04-06 18:25 | disposition home or self-care (01) ==